=== PATIENT | female | born 1955 | race Two or more races ===

== ENCOUNTER 2017-02-17 20:00 | Emergency (ER) | payer OTHER ==
[2017-02-17 20:08] VITALS: RESP 18; O2SAT 96
--- NOTE | 2017-02-17 20:31 | EDPHY ---
H & P Stated Complaint: LEFT ANKLE PAIN AFTER FALLING AND ROLLING IT Source: Patient, Family ( and daughter) Exam Limitations: No limitations - Personal History Current Tetanus/Diphtheria Vaccine: Yes Current Tetanus Diphtheria and Acellular Pertussis (TDAP): Yes - Medical/Surgical History Hx Asthma: No Hx Chronic Respiratory Disease: No Hx Diabetes: No Hx Cardiac Disease: No Hx Renal Disease: No Hx Cirrhosis: No Hx Alcoholism: No Hx HIV/AIDS: No Hx Splenectomy or Spleen Trauma: No Other PMH: HTN - Social History Smoking Status: Never smoked Time Seen by Provider: 02/17/17 20:30 HPI/ROS: HPI: This is a 61-year-old female who presents with Chief Complaint: LEFT ANKLE PAIN AFTER FALLING AND ROLLING IT Location: Left ankle Quality: Injury Duration: 1 hr prior to arrival Signs and Symptoms: No bleeding, no radiation, no numbness, no weakness, no tingling, no incontinence, + decreased range of motion, + swelling, + pain Timing: Sudden Severity: Moderate Context: Patient has a history of hypertension was walking out of her daughter' s apartment with her waiting for the Uber. When the Uber arrived, patient stepped forward, slipped on the ice and rolled her left ankle. She felt immediate medial and lateral pain, that was moderate to severe intensity, nonradiating, constant, and worsened with weight-bearing. She immediately noted swelling and bruising to the area. She denies LOC/head injury/neck pain. Does not take any blood thinners. Patient is here visiting the area from [place] as her daughter recently had eye surgery. Modifying Factors: No [id number] medications taken or ice applied Comment: ROS: see HPI Constitutional: No fever, no chills, no weight loss Eyes: No blurred vision Respiratory: No shortness of breath, no cough Cardiovascular: No chest pain Gastrointestinal: No nausea, no vomiting no diarrhea Genitourinary: No dysuria Extremities: No myalgias Neurologic: No weakness, no numbness Skin: No rashes Hematologic: No bruising, no bleeding MEDICAL/SURGICAL/SOCIAL HISTORY: Medical history: Hypertension Surgical history: Denies Social history: . CONSTITUTIONAL: Pleasant adult female, awake and alert, no obvious distress HEENT: Atraumatic and normocephalic, PERRL, EOMI. no globe entrapment, no raccoon eyes. no Lopez signs.Tympanic membranes clear. No tympanic membrane rupture. Nares patent; no septal hematoma. Oropharynx clear, no exudate and moist pink mucosa. No malocclusion. no dental trauma. Airway patent. No lymphadenopathy. NECK: supple, no midline tenderness, flexion 45 degrees, extension 45 degrees, right and left lateral flexion 45 degrees. No meningismus. Cardiovascular: Normal S1/S2, regular rate, regular rhythm, without murmur rub or gallop. PULMONARY/CHEST: Symmetrical and nontender. no crepitus. Clear to auscultation bilaterally. Good air movement. No accessory muscle usage. ABDOMEN: Soft, nondistended, nontender, no ecchymosis, no rebound, no guarding , no peritoneal signs, no masses or organomegaly. No CVAT. PELVIC: no pain with rocking; bilateral hips flexion 125 degrees, extension 30 degrees, with no pain internal rotation and no pain external rotation. BACK: No midline tenderness, no paraspinous spasm, deep tendon reflexes 2/2, no pain with straight leg raise EXTREMITIES: 2/2 DP and PT pulses, strength 5/5, left Ankle: Plantar flexion to 50, dorsiflexion to 20. Foot inversion to 35 degree. Moderate swelling and ecchymosis over the medial and lateral malleolus area. Achilles tendon intact. no deformities, no clubbing, no cyanosis or edema. NEUROLOGICAL: no focal neuro deficits. GCS 15. SKIN: Warm and dry, no erythema. no rash. Good capillary refill. (Clay,Terra) Constitutional: Initial Vital Signs Temperature (C) 36.9 C 02/17/17 20:05 Heart Rate 68 02/17/17 20:05 Respiratory Rate 18 02/17/17 20:05 Blood Pressure 203/85 H 02/17/17 20:05 O2 Sat (%) 96 02/17/17 20:05 O2 Delivery Mode Room Air Allergies/Adverse Reactions: Penicillins Allergy (Verified 02/17/17 20:08) Sulfa (Sulfonamide Antibiotics) Allergy (Verified 02/17/17 20:08) Home Medications: Medication Instructions Recorded Lisinopril 02/17/17 oxyCODONE/APAP 5/325 [Percocet 1 - 2 tab PO Q4H PRN #20 tab 02/17/17 5/325 (*)] Medical Decision Making - Diagnostics Imaging Results: Imaging Impressions Ankle X-Ray 02/17/17 20:14 Impression: 1. Bimalleolar fracture left ankle with 5-7 mm of lateral displacement distal aspects. Procedures: Procedure: Splint placement. A left posterior leg/sugar-tong splint was applied by myself and with the help of Emergency Room a/c technician. After application of the splint I returned and re -examined the patient. The splint was adequately immobilizing the joint and distal to the splint the patient's circulation and sensation was intact. (Vero Williamson) ED Course/Re-evaluation: The patient was evaluated and managed by the physician's visitor use assistant. My cosignature indicates that I reviewed the chart and I agree with the findings and plan of care as documented. I am the secondary supervising physician. ( Ana Stevens) Left ankle and foot x-ray ordered. Ice pack applied Morgan and ibuprofen given No signs of neurovascular compromise/tenting of skin/compartment syndrome/ extremities and joints examined above and below area of concern and are neurovascularly intact. X-ray shows bimalleolar fracture with 5-7 mm of displacement ED decision to consult. Spoke with Dr. Mehta who advised posterior leg/sugar- tong splint with slight reduction of lateral to medial. Have the patient call office in the a.m. with planned ORIF Friday Reassessed patient. Pain is controlled. Patient and family report that they will call their insurance company in the morning as [place]. I offered to call [employer] for them and they politely declined. This patient was seen under the supervision of my secondary supervising physician. I evaluated care for this patient independently. Discussed this patient with Dr. Stevens who did not see the patient. (Vero Williamson) Differential Diagnosis: Differential diagnosis includes but is not limited to sprain, contusion, nerve injury, tibia fracture, fibula fracture, midfoot fracture. (Vero Williamson) - Data Points Medications Given: Discontinued Medications Hydrocodone Bitart/Acetaminophen (Morgan 5/325) 1 tab PO EDNOW ONE Stop: 02/17/17 20:33 Last Admin: 02/17/17 20:47 Dose: 1 tab Ibuprofen (Motrin) 600 mg PO EDNOW ONE Stop: 02/17/17 20:34 Last Admin: 02/17/17 20:48 Dose: Not Given Oxycodone/Acetaminophen (Percocet 5/325mg Prepack#4) 1 btl TAKEHOME EDNOW ONE Stop: 02/17/17 21:14 Last Admin: 02/17/17 21:51 Dose: 1 btl Departure - Departure Disposition: Home, Routine, Self-Care Clinical Impression: Ankle fracture, bimalleolar, closed Qualifiers: Encounter type: initial encounter Laterality: left Qualified Code(s): S82.842A - Displaced bimalleolar fracture of left lower leg, initial encounter for closed fracture Condition: Good Instructions: Oxycodone/Acetaminophen (By mouth), ORIF of an Ankle Fracture (DC ) Additional Instructions: Keep the splint dry and in place until seen by Orthopedics. This use crutches for nonweightbearing status. Take Ibuprofen 600 mg every 8 hours with food as needed for pain. Apply ice for 30 minutes at a time; 2-3 times per day for the next 1-2 days. Call Orthopedics, Dr. Fox Mehta, tomorrow morning to be seen tomorrow sometime the day. The plan is to have ORIF on Friday. Referrals: Fox Mehta MD [Medical Doctor] - As per Instructions Prescriptions: oxyCODONE/APAP 5/325 [Percocet 5/325 (*)] 1 - 2 tab PO Q4H PRN #20 tab PRN Reason: Pain, Severe
[2017-02-17] MEDS ORDERED: HYDROCODONE/APAP 5/325 TAB PO ONE (20:32)
[2017-02-17] MEDS ORDERED: IBUPROFEN 600 MG TAB PO ONE (20:33)
[2017-02-17] MEDS ORDERED: OXYCODONE/APAP 5/325MG PREPACK#4 BTL TAKEHOME ONE (21:13)
[2017-02-17 22:20] VITALS: BP 205/92; PULSE 71; TEMP 99.3
== END 2017-02-17 22:19 | disposition home or self-care (01) ==
DX: S82.842A Displaced bimalleolar fracture of left lower leg, initial encounter for closed fracture (principal); I10 Essential (primary) hypertension; W00.0XXA Fall on same level due to ice and snow, initial encounter; Y93.89 Activity, other specified